=== PATIENT | female | born 1970 | race Caucasian/White ===

== ENCOUNTER 2018-06-20 18:00 | Emergency (ER) | payer OTHER ==
[2018-06-20 18:28] VITALS: BP 113/75; PULSE 71; TEMP 98.7; BMI 28.8
--- NOTE | 2018-06-20 19:18 | PDOC ---
History of Present Illness - History of Present Illness Initial Comments: 06/20/18 19:52 The patient is a 47 year old female, with a significant past medical history of chronic back pain, who presents to the emergency department with complaint of neck pain for several weeks. She states she has prescribed oxycodone and gabapentin which have not been helping her neck pain. She states she was seen by her physician about 1.5 weeks ago where she was prescribed the lidocaine patches which only slightly alleviate her pain. She states she recently tried taking anti inflammatories which did not alleviate her pain. She reports the pain intermittently radiates down her arms. She states she received a toradol injection in the past which helped her pain significantly. She also states muscle relaxants make her too tired and does not like to take them. She denies being seen by an orthopedist for her neck and back pain. The patient denies chest pain, shortness of breath, headache and dizziness. The patient denies fever, chills, nausea, vomit, diarrhea and constipation. The patient denies dysuria, frequency, urgency and hematuria. PAST MEDICAL HISTORY: chronic back pain PAST SURGICAL HISTORY: no significant history FAMILY HISTORY: no pertinent history SOCIAL HISTORY: Pt lives with family and is employed. MEDICATIONS: reviewed ALLERGIES: As per nursing notes ROS General: No fevers or chills, no weakness, no weight loss HEENT: No change in vision. No sore throat,. No ear pain CardioVascular: No chest pain or shortness of breath Respiratory:No cough, or wheezing. Gastrointestinal: no nausea, vomiting, diarrhea or constipation, No rectal bleeding Genitourinary: No dysuria, hematuria, or frequency Musculoskeletal: (+) neck pain. No joint or muscle welling Neurologic: No headache, vertigo, dizziness or loss of consciousness Psychiatric: nor depression Skin: No rashes or easy bruising Endocrine: no increased thirst or abnormal weight change Allergic: no skin or latex allergy All other systems reviewed and normal Exam: General: Well-nourished well-developed individual, no acute distress HEENT: Throat: Normal, tonsils normal, no erythema or exudate Neck: Supple, no meningeal signs, no lymphadenopathy Eyes::Pupils equal reactive and round, extraocular motion intact Chest: Nontender to palpation Cardiac: S1-S2 normal, regular rate and rhythm, no murmurs rubs or gallops Respiratory: Lungs clear to auscultation bilateral Abdomen: Soft, nondistended, normal bowel sounds, nontender to palpation diffusely Extremities: Warm, dry, no cyanosis, clubbing, or edema Skin: No rashes Musculoskeletal: (+) tenderness on palpation over the C3-C4 with some paraspinal spasms. No meningeal signs. No erythema or ecchymosis. No evidence of trauma. Neuro: Alert and oriented x3, nonfocal exam, grossly intact, normal gait Psych: Normal mood and affect <Wanda Hilliard - Last Filed: 06/20/18 19:52> - General History Source: Patient Exam Limitations: No Limitations - History of Present Illness Initial Comments: A portion of this note was documented by scribe services under my direction. I have reviewed the details of the note, within reason, and agree with the documentation with the following case summary and management plan written by me. Patient treated in the ED. Nursing notes are reviewed and incorporated into the medical decision-making. Vital signs reviewed. 06/20/18 20:46 Assessment and plan: This is a 47-year-old female who has chronic neck and back pain. Patient said she is having difficulty managing the neck pain with her current medications. Patient however does not like to take some of her medications as she says the anti-inflammatories are bothered her stomach and the muscle relaxants make her drowsy. Patient also is on oxycodone but says it is not helping. Patient said she has oxycodone at home and does not need any more oxycodone but wants to know if we can give her something else. Patient was given a one-time dose of steroids and sent out on a Medrol Dosepak taper as well as a shot of Toradol. Patient was given referral to an orthopedist for further evaluation, imaging and possible management via surgical options <Lauryn Dorantes I - Last Filed: 06/20/18 20:48> - General Chief Complaint: Pain Stated Complaint: NECK PAIN Time Seen by Provider: 06/20/18 19:13 Past History <Wanda Hilliard - Last Filed: 06/20/18 19:52> - Past Medical History COPD: No Other medical history: DENIES - Surgical History Cholecystectomy: Yes - Immunization History Td Vaccination: Yes Immunization Up to Date: (UNSURE) - Suicide/Smoking/Psychosocial Hx Smoking Status: No Smoking History: Never smoked Have you smoked in the past 12 months: No Number of Cigarettes Smoked Daily: 0 Information on smoking cessation initiated: No Hx Alcohol Use: No Drug/Substance Use Hx: No Substance Use Type: None <Lauryn Dorantes I - Last Filed: 06/20/18 20:48> - Past Medical History Allergies/Adverse Reactions: Allergies Allergy/AdvReac Type Severity Reaction Status Date / Time No Known Allergies Allergy Verified 06/20/18 18:02 Home Medications: Ambulatory Orders Oxycodone HCl/Acetaminophen [Percocet 10-325 mg Tablet] 1 each PO Q8H PRN Gabapentin 400 mg PO BID 06/20/18 Methylprednisolone [Medrol Dose Ghassan] 4 mg PO ASDIR #21 tablet 06/20/18 *Physical Exam - Vital Signs Last Vital Signs Temp Pulse Resp BP Pulse Ox 98.7 F 71 16 113/75 99 06/20/18 18:01 06/20/18 18:01 06/20/18 18:01 06/20/18 18:01 06/20/18 18:01 <Wanda Hilliard - Last Filed: 06/20/18 19:52> - Vital Signs Last Vital Signs Temp Pulse Resp BP Pulse Ox 98.7 F 71 16 113/75 99 06/20/18 18:01 06/20/18 18:01 06/20/18 18:01 06/20/18 18:01 06/20/18 18:01 <Lauryn Dorantes I - Last Filed: 06/20/18 20:48> ED Treatment Course - Medications Given in the ED: ED Medications Discontinued Medications Generic Name Dose Route Start Last Admin Trade Name Freq PRN Reason Stop Dose Admin Al Hydroxide/Mg Hydroxide 30 ml 06/20/18 19:41 06/20/18 19:50 Mylanta Oral Suspension - PO 06/20/18 19:42 30 ml ONCE ONE Administration Ketorolac Tromethamine 60 mg 06/20/18 19:41 06/20/18 19:50 Toradol Injection - IM 06/20/18 19:42 60 mg ONCE ONE Administration Prednisone 40 mg 06/20/18 19:41 06/20/18 19:50 Deltasone - PO 06/20/18 19:42 40 mg ONCE ONE Administration <Wanda Hilliard - Last Filed: 06/20/18 19:52> *DC/Admit/Observation/Transfer - Attestations Scribe Attestion: 06/20/18 19:52 Documentation prepared by Wanda Hilliard, acting as medical technicians for Lauryn Dorantes MD <Wanda Hilliard - Last Filed: 06/20/18 19:52> - Discharge Dispostion Decision to Admit order: No <Lauryn Dorantes I - Last Filed: 06/20/18 20:48> Diagnosis at time of Disposition: Cervical pain (neck) - Discharge Dispostion Disposition: HOME Condition at time of disposition: Stable - Prescriptions Prescriptions: Methylprednisolone [Medrol Dose Ghassan] 4 mg PO ASDIR #21 tablet - Patient Instructions Additional Instructions: Continue all your pain medications as prescribed, consider taking the muscle relaxant at night only. Start the Medrol Dosepak tomorrow evening take it with food don't take on an empty stomach, Follow up with an orthopedist if you need an orthopedist call Dr. Aguayo at [phone] Friday morning for an appointment. Return to the emergency department immediately with ANY new, persistent or worsening symptoms. Continue any medications as previously prescribed by your physician. You should follow up with your primary doctor as soon as possible regarding today's emergency department visit. . Please make sure your doctor reviews the results of your emergency evaluation. Thank you for coming to the Emergency Department today for your care. It was a pleasure to see you today. Please note that your evaluation is INCOMPLETE until you follow-up with your doctor.
[2018-06-20] MEDS ORDERED: KETOROLAC TROMETHAMINE 60 MG/2 ML VIAL IM ONE (19:41)
[2018-06-20] MEDS ORDERED: MAG HYDROX/AL HYDROX/SIMETH 30 ML UNIT-DOSE CUP PO ONE (19:41)
[2018-06-20] MEDS ORDERED: predniSONE 20 MG TABLET (UD) PO ONE (19:41)
[2018-06-20] MEDS ORDERED: MAG HYDROX/AL HYDROX/SIMETH 30 ML UNIT-DOSE CUP ONE (19:45)
[2018-06-20] MEDS ORDERED: KETOROLAC TROMETHAMINE 60 MG/2 ML VIAL ONE (19:45)
[2018-06-20] MEDS ORDERED: predniSONE 20 MG TABLET (UD) ONE (19:45)
== END 2018-06-20 19:53 | disposition home or self-care (01) ==
LOC: FER 18:00
PROC: 3E0233Z Introduction of Anti-inflammatory into Muscle, Percutaneous Approach (ICD-10-PCS; principal; 2018-06-20)
DX: M54.2 Cervicalgia (principal); G89.29 Other chronic pain
CPT/HCPCS: 99282-25

== ENCOUNTER 2021-09-25 02:33 | Emergency (ER) | payer OTHER ==
[2021-09-25 02:41] VITALS: BP 158/80; PULSE 74; TEMP 98; BMI 26.5
[2021-09-25] MEDS ORDERED: KETOROLAC TROMETHAMINE 60 MG/2 ML VIAL ONE (02:44)
[2021-09-25] MEDS ORDERED: KETOROLAC TROMETHAMINE 60 MG/2 ML VIAL IM ONE (02:44)
== END 2021-09-25 02:53 | disposition home or self-care (01) ==
LOC: FER 02:33
PROC: 3E0233Z Introduction of Anti-inflammatory into Muscle, Percutaneous Approach (ICD-10-PCS; principal; 2021-09-25)
DX: M79.10 Myalgia, unspecified site (principal)
CPT/HCPCS: 96372; 99284-25